=== PATIENT | female | born 1995 | race American Indian/Alaskan Native ===

== ENCOUNTER 2018-04-13 17:35 | Emergency (ER) | payer OTHER ==
[2018-04-13 17:54] VITALS: BMI 24.3
[2018-04-13 17:57] VITALS: O2SAT 100
[2018-04-13] MEDS ORDERED: cefTRIAXone (Rocephin) 250 mg Inj IM STA (18:23)
[2018-04-13 18:25] LABS: HCG,QUALITATIVE URINE NEGATIVE (NEGATIVE)
[2018-04-13 18:28] LABS: SQUAMOUS EPITHIAL 3 /hpf (0-5); URINE BILIRUBIN NEGATIVE (NEGATIVE); URINE BLOOD NEGATIVE (NEGATIVE); URINE CLARITY Clear (Clear); URINE COLOR Straw (YELLOW); URINE GLUCOSE (UA) NORMAL (Normal); URINE LEUKOCYTE ESTERASE 1+ Leu/uL (Negative); URINE PROTEIN NEGATIVE (NEGATIVE); URINE UROBILINOGEN NORMAL mg/dL (0.2-1.0)
--- NOTE | 2018-04-13 18:30 | C.PDOC ---
History Of Present Illness Patient presents to ED c/o vaginal discharge for the past two weeks. She was seen by her furnace caretaker last week, told she had bacterial vaginosis and given "medication for 5 days". Patient states symptoms have persisted, and she admits to sexual intercourse with persont that recently tested (+) for chalmydia. She denies dysuria/hematuria, fever, abdominal pain, nausea/vomiting /diarrhea. Time Seen by Provider: 04/13/18 17:57 Chief Complaint (Nursing): Female Genitourinary History Per: Patient History/Exam Limitations: no limitations Severity: Mild Past Medical History Reviewed: Historical Data, Nursing Documentation, Vital Signs Vital Signs: Last Vital Signs Temp 99.5 F 04/13/18 17:54 Pulse 94 H 04/13/18 17:54 Resp 18 04/13/18 17:54 BP 129/88 04/13/18 17:54 Pulse Ox 100 04/13/18 18:31 - Medical History PMH: No Chronic Diseases Family History: States: No Known Family Hx - Social History Hx Alcohol Use: No Hx Substance Use: No Review Of Systems Constitutional: Negative for: Fever, Chills Cardiovascular: Negative for: Chest Pain Respiratory: Negative for: Cough, Shortness of Breath Gastrointestinal: Negative for: Nausea, Vomiting, Abdominal Pain, Diarrhea Genitourinary: Positive for: Vaginal Discharge. Negative for: Dysuria, Hematuria, Vaginal Bleeding Physical Exam - Physical Exam Appears: Well, Non-toxic, No Acute Distress Oral Mucosa: Moist Cardiovascular: Rhythm Regular Respiratory: Normal Breath Sounds, No Rales, No Rhonchi, No Wheezing Gastrointestinal/Abdominal: Normal Exam, Bowel Sounds, Soft, No Tenderness Pelvic: Normal External Exam, Normal Bimanual Exam, No Vaginal Bleeding, Vaginal Discharge (thin white discharge coming out of cervical os), No Cervical Motion Tenderness, No Cervix Open, No Adnexal Tenderness, No Tender Uterus Neurological/Psych: Oriented x3 ED Course And Treatment O2 Sat by Pulse Oximetry: 100 (RA) Pulse Ox Interpretation: Normal Progress Note: UA, Upreg and CG swab ordered. Patient given IM rocephin and PO azithromycin. Disposition Counseled Patient/Family Regarding: Studies Performed, Diagnosis, Need For Followup, Rx Given - Disposition Referrals: Oscar Salazar MD [Staff Provider] - Disposition: HOME/ ROUTINE Disposition Time: 18:50 Condition: STABLE Additional Instructions: FOLLOW UP WITH YOUR BATTERY SERVICE TECHNICIAN WITHIN 1 WEEK HAVE SEXUAL PARTNER(S) TESTED/TREATED RETURN TO ER IF YOU HAVE ANY CONCERNING SYMPTOMS Instructions: Vaginal Discharge in Adults Forms: [facility] ([place]an) Print Language: MOHAWK - Clinical Impression Clinical Impression: Cervicitis
[2018-04-13 19:59] VITALS: BP 108/66; PULSE 83; RESP 16; TEMP 98.8
== END 2018-04-13 19:35 | disposition home or self-care (01) ==
LOC: C.ER 17:35
DX: N72 Inflammatory disease of cervix uteri (principal)
CPT/HCPCS: 81001; 84703; 87491; 87591; 96372; 99284; J0696